=== PATIENT | female | born 1965 | race Caucasian/White ===

== ENCOUNTER 2018-10-18 18:01 | Emergency (ER) | payer BC ==
[2018-10-18 18:09] VITALS: BP 149/81
[2018-10-18] MEDS ORDERED: Sodium Chloride 0.9% 1,000 ML IV ONE (18:30)
[2018-10-18] MEDS ORDERED: Ondansetron 4 MG/2 ML SDV IVPUSH ONE (18:30)
[2018-10-18] MEDS ORDERED: Sodium Chloride 0.9% 10 ML Syringe FLUSH PRN (18:31)
--- NOTE | 2018-10-18 18:38 | EDM.PDOC ---
ED HPI GENERAL MEDICAL PROBLEM - General Chief Complaint: Neuro Symptoms/Deficits Stated Complaint: DIZZY/NAUSEA/VOMITING Time Seen by Provider: 10/18/18 18:18 Source of Information: Reports: Patient History Limitations: Reports: No Limitations - History of Present Illness INITIAL COMMENTS - FREE TEXT/NARRATIVE: 53-year-old female presents for evaluation and treatment of dizziness. Patient reports that the dizziness started when she woke up this morning. She reports that yesterday was uneventful day. She has not had any recent trauma such as falls or motor vehicle accident. She states that she woke up with dizziness and describes the room spinning. She reports associated nausea and vomiting. She states she can hardly walk due to the dizziness. She denies any headaches, ear pain, ringing in the ears, vision changes, numbness or tingling in extremities, chest pain, shortness of breath or weakness to it she reports some soreness in her abdomen from feeling nauseous and vomiting all day. Dizziness significantly improves when she is not moving or looking around. Patient states that she is a prediabetic. She checked her blood sugar today was 139, she was drinking Gatorade earlier she felt she made been dehydrated. Blood sugar upon arrival is 118. patient states she's never had anything like this before. Primary care provider is Dr. Manzano. Onset: Today - Related Data Allergies Allergy/AdvReac Type Severity Reaction Status Date / Time hydromorphone [From Dilaudid] Allergy Nausea Verified 10/18/18 18:09 Home Meds: Home Meds Aspirin 162 mg PO DAILY 03/08/15 [History] Levothyroxine [Synthroid] 100 mcg PO DAILY 03/08/15 [History] Metoprolol Succinate [Toprol XL] 12.5 mg PO DAILY 03/08/15 [History] Ranitidine [Zantac] 150 mg PO BID 03/08/15 [History] Rosuvastatin [Crestor] 20 mg PO DAILY 03/08/15 [History] Meclizine [Antivert] 25 mg PO Q6H PRN #20 tab 10/18/18 [Rx] Ondansetron [Zofran ODT] 4 mg PO Q6H PRN #15 tab.dis 10/18/18 [Rx] Past Medical History HEENT History: Reports: Impaired Vision Cardiovascular History: Reports: High Cholesterol Social & Family History - Tobacco Use Smoking Status *Q: Never Smoker ED ROS GENERAL - Review of Systems Review Of Systems: See Below HEENT: Reports: Other (Denies any tinnitus). Denies: Ear Pain Respiratory: Denies: Shortness of Breath Cardiovascular: Denies: Chest Pain, Lightheadedness GI/Abdominal: Reports: Abdominal Pain (Soreness and abdomen due to vomiting), Nausea, Vomiting Neurological: Reports: Dizziness, Gait Disturbance (Due to dizziness). Denies: Headache, Numbness, Tingling, Weakness ED EXAM, DIZZINESS - Physical Exam Exam: See Below Exam Limited By: No Limitations General Appearance: Alert, WD/WN, Mild Distress Eye Exam: Bilateral Eye: EOMI, Normal Inspection, Nystagmus (Reproducible with lateral gaze), PERRL Nystagmus: reproducible Ears: Normal External Exam, Normal Canal, Hearing Grossly Normal, Normal TMs Nose: Normal Inspection Throat/Mouth: Normal Inspection, Normal Lips, Normal Oropharynx, Normal Voice, No Airway Compromise Vertigo: reproducible (With movement and extraocular movement testing), short duration Respiratory/Chest: No Respiratory Distress, Lungs Clear, Normal Breath Sounds Cardiovascular: Normal Peripheral Pulses, Regular Rate, Rhythm, No Murmur GI/Abdominal: Normal Bowel Sounds, Soft, Non-Tender Neurological: Alert, Normal Mood/Affect, Normal Dorsiflexion, CN II-XII Intact, Normal Plantar Flexion, Other (Silk Folder strength, dorsiflexion and plantar flexion all 5 out of 5 bilaterally. No pronator drift. Normal [id number] testing. Normal finger to nose testing) Psychiatric: Normal Affect, Normal Mood Skin Exam: Warm, Dry, Normal Color Course - Vital Signs Last Recorded V/S: Last Vital Signs Temp 97.0 F 10/18/18 18:06 Pulse 79 10/18/18 18:06 Resp 16 10/18/18 18:06 BP 149/81 H 10/18/18 18:06 Pulse Ox 100 10/18/18 18:06 - Orders/Labs/Meds Labs: Laboratory Tests 10/18/18 10/18/18 10/18/18 Range/Units 18:14 18:14 18:40 WBC 9.12 (3.98-10.04) K/mm3 RBC 4.60 (3.98-5.22) M/mm3 Hgb 13.6 (11.2-15.7) gm/L Hct 40.8 (34.1-44.9) % MCV 88.7 (79.4-94.8) fl MCH 29.6 (25.6-32.2) pg MCHC 33.3 (32.2-35.5) g/dl RDW Std Deviation 45.1 (36.4-46.3) fL Plt Count 261 (182-369) K/mm3 MPV 9.7 (9.4-12.3) fl Neut % (Auto) 73.5 H (34.0-71.1) % Lymph % (Auto) 17.5 L (19.3-51.7) % [place] % (Auto) 7.5 (4.7-12.5) % Eos % (Auto) 1.1 (0.7-5.8) Baso % (Auto) 0.3 (0.1-1.2) % Neut # (Auto) 6.70 H (1.56-6.13) K/mm3 Lymph # (Auto) 1.60 (1.18-3.74) K/mm3 [place] # (Auto) 0.68 H (0.24-0.36) K/mm3 Eos # (Auto) 0.10 (0.04-0.36) K/mm3 Baso # (Auto) 0.03 (0.01-0.08) K/mm3 Sodium 140 (136-145) mEq/L Potassium 3.2 L (3.5-5.1) mEq/L Chloride 104 (98-107) mEq/L Carbon Dioxide 21 (21-32) mEq/L Anion Gap 18.2 H (5-15) BUN 12 (7-18) mg/dL Creatinine 0.9 (0.55-1.02) mg/dL Est Cr Clr Drug Dosing 79.97 mL/min Estimated GFR (MDRD) > 60 (>60) mL/min BUN/Creatinine Ratio 13.3 L (14-18) Glucose 108 H (74-106) mg/dL POC Glucose 118 H (70-105) mg/dL Calcium 9.1 (8.5-10.1) mg/dL Total Bilirubin 0.3 (0.2-1.0) mg/dL AST 18 (15-37) U/L ALT 21 (14-59) U/L Alkaline Phosphatase 54 (46-116) U/L Total Protein 7.6 (6.4-8.2) g/dl Albumin 3.9 (3.4-5.0) g/dl Globulin 3.7 gm/dL Albumin/Globulin Ratio 1.1 (1-2) Urine Color (Yellow) Urine Appearance (Clear) Urine pH (5.0-8.0) Ur Specific [place] (1.005-1.030) Urine Protein (Negative) Urine Glucose (UA) (Negative) Urine Ketones (Negative) Urine Occult Blood (Negative) Urine Nitrite (Negative) Urine Bilirubin (Negative) Urine Urobilinogen (0.2-1.0) Ur Leukocyte Esterase (Negative) Urine RBC (0-5) /hpf Urine WBC (0-5) /hpf Ur Squamous Epith Cells (0-5) /hpf Urine Bacteria (FEW) /hpf Hyaline Casts (0-5) /lpf Urine Mucus (FEW) /hpf 10/18/18 Range/Units 21:00 WBC (3.98-10.04) K/mm3 RBC (3.98-5.22) M/mm3 Hgb (11.2-15.7) gm/L Hct (34.1-44.9) % MCV (79.4-94.8) fl MCH (25.6-32.2) pg MCHC (32.2-35.5) g/dl RDW Std Deviation (36.4-46.3) fL Plt Count (182-369) K/mm3 MPV (9.4-12.3) fl Neut % (Auto) (34.0-71.1) % Lymph % (Auto) (19.3-51.7) % [place] % (Auto) (4.7-12.5) % Eos % (Auto) (0.7-5.8) Baso % (Auto) (0.1-1.2) % Neut # (Auto) (1.56-6.13) K/mm3 Lymph # (Auto) (1.18-3.74) K/mm3 [place] # (Auto) (0.24-0.36) K/mm3 Eos # (Auto) (0.04-0.36) K/mm3 Baso # (Auto) (0.01-0.08) K/mm3 Sodium (136-145) mEq/L Potassium (3.5-5.1) mEq/L Chloride (98-107) mEq/L Carbon Dioxide (21-32) mEq/L Anion Gap (5-15) BUN (7-18) mg/dL Creatinine (0.55-1.02) mg/dL Est Cr Clr Drug Dosing mL/min Estimated GFR (MDRD) (>60) mL/min BUN/Creatinine Ratio (14-18) Glucose (74-106) mg/dL POC Glucose (70-105) mg/dL Calcium (8.5-10.1) mg/dL Total Bilirubin (0.2-1.0) mg/dL AST (15-37) U/L ALT (14-59) U/L Alkaline Phosphatase (46-116) U/L Total Protein (6.4-8.2) g/dl Albumin (3.4-5.0) g/dl Globulin gm/dL Albumin/Globulin Ratio (1-2) Urine Color Yellow (Yellow) Urine Appearance Clear (Clear) Urine pH 6.0 (5.0-8.0) Ur Specific [place] 1.015 (1.005-1.030) Urine Protein Negative (Negative) Urine Glucose (UA) Negative (Negative) Urine Ketones Trace H (Negative) Urine Occult Blood Negative (Negative) Urine Nitrite Negative (Negative) Urine Bilirubin Negative (Negative) Urine Urobilinogen 0.2 (0.2-1.0) Ur Leukocyte Esterase Negative (Negative) Urine RBC 0-5 (0-5) /hpf Urine WBC Not seen (0-5) /hpf Ur Squamous Epith Cells 0-5 (0-5) /hpf Urine Bacteria Few (FEW) /hpf Hyaline Casts 0-5 (0-5) /lpf Urine Mucus Few (FEW) /hpf Meds: Medications Discontinued Medications Generic Name Dose Route Start Last Admin Trade Name Freq PRN Reason Stop Dose Admin Diazepam 2 mg 10/18/18 21:24 10/18/18 21:36 Valium IV 10/18/18 21:25 Not Given ONETIME ONE Diazepam 2 mg 10/18/18 21:30 10/18/18 21:37 Valium IV 10/18/18 21:31 2 mg ONETIME ONE Administration Sodium Chloride 1,000 mls @ 999 mls/hr 10/18/18 18:30 10/18/18 18:39 Normal Saline IV 10/18/18 19:30 999 mls/hr ONETIME ONE Administration Promethazine HCl 25 mg/ Sodium 51 mls @ 100 mls/hr 10/18/18 19:46 10/18/18 20 :01 Chloride IV 10/18/18 20:16 100 mls/hr ONETIME ONE Administration Meclizine HCl 25 mg 10/18/18 18:30 10/18/18 18:41 Antivert PO 10/18/18 18:31 25 mg NOW STA Administration Ondansetron HCl 4 mg 10/18/18 18:30 10/18/18 18:37 Zofran IVPUSH 10/18/18 18:31 4 mg ONETIME ONE Administration Potassium Chloride 40 meq 10/18/18 19:46 10/18/18 20:51 Klor-Con M20 PO 10/18/18 19:47 40 meq ONETIME ONE Administration Sodium Chloride 10 ml 10/18/18 18:31 10/18/18 18:14 Saline Flush FLUSH 10 ml ASDIRECTED PRN Administration Keep Vein Open - Re-Assessments/Exams Free Text/Narrative Re-Assessment/Exam: 10/18/18 19:47 Checked on the patient. Feels slightly improved. still nauseous . Phenergan ordered. Will give PO potassium when able to take orally. 10/18/18 22:55 checked on the patient. She states that this time she is feeling better. Still has some dizziness and nausea has resolved feels comfortable going home and getting some rest. Discharge instructions as documented. Departure - Departure Time of Disposition: 22:56 Disposition: Home, Self-Care 01 Condition: Fair Clinical Impression: Vertigo - Discharge Information *PRESCRIPTION DRUG MONITORING PROGRAM REVIEWED*: No *COPY OF PRESCRIPTION DRUG MONITORING REPORT IN PATIENT LAURA: No Prescriptions: Meclizine [Antivert] 25 mg PO Q6H PRN #20 tab PRN Reason: Dizziness Ondansetron [Zofran ODT] 4 mg PO Q6H PRN #15 tab.dis PRN Reason: Nausea Instructions: Vertigo, [id number] Referrals: Brittany Manzano MD [Primary Care Provider] - Forms: ED Department Discharge Additional Instructions: take the Zofran as prescribed. 1 tab every 6 hours as needed for nausea. Meclizine as prescribed. Every 6 hours as needed for dizziness. rests. Make sure you are drinking plenty of fluids. Recommend following up with [facility] Tuesday if your symptoms have not resolved. Call [phone] to schedule with a PT there. Please return to the ER should your symptoms change or worsen.
[2018-10-18] MEDS ORDERED: Potassium Chloride 20 MEQ Tab.ER PO ONE (19:46)
[2018-10-18] MEDS ORDERED: Promethazine 25 MG in Sodium Chloride 0.9% 50 ML IV ONE (19:46)
[2018-10-18] MEDS ORDERED: diazePAM 5 MG/ML MDV IV ONE (21:24)
[2018-10-18] MEDS ORDERED: diazePAM 5 MG/ML-2ml Syringe IV ONE (21:30)
== END 2018-10-18 23:15 | disposition home or self-care (01) ==
LOC: JD.ED 18:01
DX: R42 Dizziness and giddiness (principal); E78.00 Pure hypercholesterolemia, unspecified; Z79.82 Long term (current) use of aspirin; Z79.899 Other long term (current) drug therapy; Z88.6 Allergy status to analgesic agent
CPT/HCPCS: 36415; 80053; 81001; 82962; 85025; 96361; 96365; 96375; 99284; A9270; J2405; J2550; J3360; J7040; J7050